=== PATIENT | female | born 1985 | race African-American/Black ===

== ENCOUNTER 2017-01-09 10:37 | Emergency (ER) | payer MEDICARE ==
[2017-01-09 11:36] LABS: HEMOGLOBIN 13.7 gm/dl (12.3-15.3); RED BLOOD COUNT 4.8 M/UL (4.00-5.10); WHITE BLOOD COUNT 5.2 K/UL (4.5-11.0)
[2017-01-09 12:01] LABS: BUN/CREATININE RATIO 15 (0-10)
== END 2017-01-09 14:00 | disposition home or self-care (01) ==
LOC: ER1 10:37
PROVIDERS: Emergency Medicine
DX: N93.9 Abnormal uterine and vaginal bleeding, unspecified (principal); R10.31 Right lower quadrant pain; R10.32 Left lower quadrant pain; F17.200 Nicotine dependence, unspecified, uncomplicated
CPT/HCPCS: 36415; 80053; 84702; 85025; 96361; 96374; 96375; 96376; 99284; J2270; J2405; J7030